=== PATIENT | male | born 1970 | race Caucasian/White ===

== ENCOUNTER 2018-09-09 09:07 | Emergency (ER) | payer OTHER ==
[~2018-09-09] VITALS: Ht 162.6 cm; Wt 77.1 kg
[2018-09-09 09:21] VITALS: BP 144/94; Ht 162.6 cm; Wt 77.1 kg
== END 2018-09-09 09:49 | disposition home or self-care (01) ==
LOC: ED 09:07
DX: R22.31 Localized swelling, mass and lump, right upper limb (principal); Z13.89 Encounter for screening for other disorder; Z91.013 Allergy to seafood; Z95.1 Presence of aortocoronary bypass graft

== ENCOUNTER 2018-09-13 10:07 | Emergency (ER) | payer OTHER ==
[~2018-09-13] VITALS: Ht 162.6 cm; Wt 82.6 kg
[2018-09-13 10:12] VITALS: Ht 162.6 cm; Wt 82.6 kg
[2018-09-13 11:15] VITALS: BP 117/75
== END 2018-09-13 11:40 | disposition home or self-care (01) ==
LOC: ED 10:07
DX: J06.9 Acute upper respiratory infection, unspecified (principal); R09.1 Pleurisy; I10 Essential (primary) hypertension; Z88.2 Allergy status to sulfonamides; Z98.890 Other specified postprocedural states; Z91.013 Allergy to seafood

== ENCOUNTER 2019-06-26 16:33 | Emergency (ER) | payer OTHER ==
[~2019-06-26] VITALS: Ht 162.6 cm; Wt 80.3 kg
[2019-06-26 16:42] VITALS: Ht 162.6 cm; Wt 80.3 kg
[2019-06-26 17:25] LABS: BASOPHIL % 0.3 % (0-2); PLATELET COUNT 191 x10^3mcL (130-400); RED CELL DISTRIBUTION WIDTH 14.1 % (11.5-14.5)
[2019-06-26 17:38] LABS: CALCIUM 8.8 mg/dL (8.5-10.1); CARBON DIOXIDE 26.5 mmol/L (21-32); CREATININE SERUM 1.5 mg/dL (0.7-1.3)
[2019-06-26 17:42] LABS: ALBUMIN 4.2 g/dL (3.4-5.0); BILIRUBIN TOTAL 0.9 mg/dL (0.20-1.00)
[2019-06-26 18:24] VITALS: BP 118/72
== END 2019-06-26 18:24 | disposition home or self-care (01) ==
LOC: ED 16:33
PROVIDERS: Emergency Medicine
DX: R07.89 Other chest pain (principal); M62.838 Other muscle spasm; F19.10 Other psychoactive substance abuse, uncomplicated; I10 Essential (primary) hypertension; E78.00 Pure hypercholesterolemia, unspecified; Z88.2 Allergy status to sulfonamides; Z91.013 Allergy to seafood
CPT/HCPCS: 36415; Q0092

== ENCOUNTER 2019-09-24 08:28 | Emergency (ER) | payer OTHER, SELFPAY ==
[~2019-09-24] VITALS: Ht 162.6 cm; Wt 83.5 kg
[2019-09-24 08:40] VITALS: Ht 162.6 cm; Wt 83.5 kg
[2019-09-24 10:20] VITALS: BP 139/87
== END 2019-09-24 10:20 | disposition home or self-care (01) ==
LOC: ED 08:28
DX: R06.02 Shortness of breath (principal); R05 Cough; R09.89 Other specified symptoms and signs involving the circulatory and respiratory systems; R11.0 Nausea; I10 Essential (primary) hypertension; E78.00 Pure hypercholesterolemia, unspecified; Z20.828 Contact with and (suspected) exposure to other viral communicable diseases; Z88.2 Allergy status to sulfonamides; Z91.013 Allergy to seafood
CPT/HCPCS: Q0092; U0003-CS